=== PATIENT | male | born 1960 | race Caucasian/White ===

== ENCOUNTER 2016-06-26 18:27 | Emergency (ER) | payer BC ==
--- NOTE | ~2016-06-26 | CR230 ---
[facility] A Service of [facility] & [facility] RADIOLOGY TEXT RESULTS PATIENT: BRIDGER ÁLVAREZ LOCATION: [facility] : 56 UNIT #: [id number] AGE: [address]: Alisa Rojas APRN SEX: M ORDER DR: [id number] [facility] [address] [place], [place] [address] [id number] MR#: [id number] Acc #: [id number] NAME: BRIDGER ÁLVAREZ : 1960 SEX: M STUDY DATE/TIME: 06/26/2016 18:56 UNIT: [facility] ROOM: STUDY DESCRIPTION: CR Shoulder Min 2 View Rt Attending Physician: Alisa Rojas A.P.R.N. Ordering Physician: Warren Gan M.D. Primary Care Physician: No Primary Care Physician MEDICAL IMAGING REPORT This report is preliminary unless electronic signature is present EXAM Right shoulder, 3 views. DATE OF EXAM 06/26/2016 HISTORY Shoulder pain after injury cutting down a tree yesterday. FINDINGS 3 views of the right shoulder demonstrate satisfactory shoulder alignment. Mild degenerative changes at the acromioclavicular joint. No fracture, joint space narrowing or dislocation. IMPRESSION No acute findings. No fracture. Mild degenerative changes at the acromioclavicular joint. Dictated by... Kendall Gandhi M.D. THIS IS AN ELECTRONICALLY VERIFIED REPORT Kendall Gandhi M.D. at 06/27/2016 12:04 AM HELDER/vance TD: 06/26/2016 22:19 JOB #: [id number] MEDICAL IMAGING REPORT Page 1 of 1 COPY
[~2016-06-26 18:27] MED LIST: ANEXSIA 7.5/3251 TA1 PO; ASPIRIN81 M1 PO; AUGMENTIN PO; BACITRACIN1 GM OINT EXT; BACLOFEN10 MG PO; BP MED; CHOLESTEROL MED; CLEOCIN PO; FLONASE16 GM; FOLIC ACID1 MG PO; GABAPENTIN300 M2 PO; GABAPENTIN300 MG; GLUCOPHAGE XR500 MG PO; GLUCOPHAGE500 MG PO; HUMAPEN LUXURA1 BOX; HYDROCODONE; HYDROCODONE-APA1 T55 PO; IBUPROFEN PO; IBUPROFEN800 MG PO; KEFLEX PO; KEFLEX500 MG PO; KEFZOL2 GM INJ; LEVEMIR SUBQ; LISINOPRIL10 MG PO; LORTAB 5/500 TA1 TA1 PO; LORTAB 7.5-5001 TAB PO; METFORMIN HCL500 M1 PO; METFORMIN HCL500 M2; MUSCLE RELAXER; NAPROSYN500 MG PO; NERVE MED; NORCO 10-325 TA1 TAB PO; NOVOLIN 70/30 V10 M1 SUBQ; PERCOCET 5-3251 TAB PO; PROTONIX PO; ROBAXIN500 MG PO; SIMVASTATIN20 MG; STOMACH MED; TAKES NO MEDS; THIAMINE HCL100 M1 PO; ULTRAM PO; VICODIN 5/1 TAB 5/50 PO; VICODIN 5/500 T1 TAB PO; VOLTAREN75 MG PO; ZESTRIL10 M1 PO; ZESTRIL5 MG; ZITHROMAX PO; ZOCOR10 MG PO
== END 2016-06-26 19:41 | disposition home or self-care (01) ==
LOC: CFTX 18:27
DX: S40.011A Contusion of right shoulder, initial encounter (principal); S00.81XA Abrasion of other part of head, initial encounter; W19.XXXA Unspecified fall, initial encounter; Y92.89 Other specified places as the place of occurrence of the external cause
CPT/HCPCS: 73030; 99283

== ENCOUNTER → 2016-07-11 | Outpatient (CLI) | payer BC ==
--- NOTE | ~2016-07-11 | MR165 ---
[facility] A Service of [facility] & [facility] RADIOLOGY TEXT RESULTS PATIENT: BRIDGER ÁLVAREZ LOCATION: [facility] : 56 UNIT #: [id number] AGE: [address]: Cayetano Beckwith MD SEX: M ORDER DR: [id number] [address] [address] [id number] O MR#: [id number] Acc #: [id number] NAME: BRIDGER ÁLVAREZ : 1960 SEX: M STUDY DATE/TIME: 07/11/2016 11:40 UNIT: [facility] ROOM: STUDY DESCRIPTION: MR Shoulder Wo Contrast Rt Attending Physician: Cayetano Beckwith M.D. Referring Physician: Cayetano Beckwith M.D. Ordering Physician: Cayetano Beckwith M.D. Primary Care Physician: No Primary Care Physician MRI CENTER REPORT This report is preliminary unless electronic signature is present. EXAM MRI of the right shoulder HISTORY 56-year-old male reinjured shoulder, 06/26/2016. Injured while cutting tree down. Complains of increasing shoulder pain, limited range of motion, and decreased strength x2 weeks. History of prior rotator cuff repair in 2013. COMPARISON Comparison MRI of the right shoulder 08/16/2014 and right shoulder films 06/26/2016. TECHNIQUE Multiplanar multiecho imaging was performed of the right shoulder utilizing a high field magnet and dedicated protocol. Focus of marrow signal abnormality noted within the lateral humerus related to suture anchors and previous rotator cuff repair. Morphologic changes along the undersurface of the distal acromion suggest previous acromioplasty. Mild AC joint arthropathy with predominately superiorly directed clavicular and acromial osteophytes. No significant periarticular inflammation. There is some inferiorly-directed distal clavicular hypertrophic change which produces minimal mass effect on the supraspinatus. Joint fluid within normal limits. There is a focal defect along the articular surface of the critical zone of the supraspinatus tendon measuring 9 mm medial to lateral by 14 mm AP dimension. Based on this non-arthrographic MRI, this is felt to represent a high-grade partial tear and is estimated to involve greater than 50% of the thickness of the tendon. There is a moderate amount of tendinopathy within the remainder of the tendon. The distal supraspinatus tendon is attenuated and may reflect chronic tendinopathy or sequela of rotator cuff STS. [facility] A Service of [facility] RADIOLOGY TEXT RESULTS PATIENT: BRIDGER ÁLVAREZ LOCATION: [facility] : 56 UNIT #: [id number] AGE: [address]: Cayetano Beckwith MD SEX: M ORDER DR: repair. The infraspinatus tendon demonstrates mild tendinopathy. Teres minor tendon appears intact. As previously noted., the subscapularis tendon is attenuated particularly near its lesser tuberosity insertion and may reflect chronic tendinopathy or partial tear but a discrete full-thickness tear is not identified. There is mild atrophy of the cranial fibers of the subscapularis tendon. No muscle edema. There is truncation of the superior labrum with absence of a defined biceps anchor and intraarticular long tendon biceps. This may represent either a biceps tendon tear or previous biceps tenodesis. The extraarticular long tendon of the biceps is not seen until the proximal aspect of the upper arm, and there does appear to be some biceps tendinopathy. Anterior and posterior labrum unremarkable. Articular cartilage appears normal. The deltoid and extraarticular soft tissues appear normal. IMPRESSION 1. 9 x 14 mm high-grade partial-thickness articular-sided tear within the critical zone of the supraspinatus tendon, which appears increased in overall size when compared to the July 2014 study, but on the current study does not appear to represent a full-thickness tear, but does appear to be superimposed on diffuse tendinopathy. 2. Mild infraspinatus tendinopathy. 3. Diffuse attenuation of the subscapularis tendon which may reflect chronic tendinopathy or a partial tear. There is corresponding atrophy of the cranial fibers of the subscapularis muscle. 4. Absence of the biceps anchor and intraarticular long tendon of the biceps may be related to biceps tendon tear or prior tenodesis. Minimal tendinopathy remaining in the extraarticular long tendon of the biceps. Dictated by.Arabella Haley M.D. THIS IS AN ELECTRONICALLY VERIFIED REPORT J. Jarad Haley, M.D. at 07/14/2016 7:25 AM Donna TD: 07/11/2016 18:25 JOB #: [id number] MRI CENTER REPORT Page 1 of 1
== END | disposition home or self-care (01) ==
LOC: SMRI 11:23
DX: S46.011A Strain of muscle(s) and tendon(s) of the rotator cuff of right shoulder, initial encounter (principal); M75.91 Shoulder lesion, unspecified, right shoulder
CPT/HCPCS: 73221